=== PATIENT | male | born 1955 | race Caucasian/White ===

== ENCOUNTER 2022-04-20 16:50 | Emergency (ER) | payer MEDICARE ==
[2022-04-20] MEDS ORDERED: Boostrix 0.5 ML (Tdap) VIAL (>/=7 yrs of age) ONE (17:43)
[2022-04-20] MEDS ORDERED: Lidocaine 1% w/Epinephrine 1:100K 20 ML VIAL ONE (17:43)
[2022-04-20] MEDS ORDERED: Diazepam 5 MG TAB ONE (18:00)
== END 2022-04-20 19:33 | disposition home or self-care (01) ==
LOC: ERS 16:50
DX: S81.811A Laceration without foreign body, right lower leg, initial encounter (principal); I10 Essential (primary) hypertension; Z23 Encounter for immunization; W26.9XXA Contact with unspecified sharp object(s), initial encounter
CPT/HCPCS: 12034; 90471; 90715